=== PATIENT | male | born 1950 | race Caucasian/White ===

== ENCOUNTER 2018-03-04 14:58 | Emergency (ER) | payer MEDICARE, BC, OTHER ==
[~2018-03-04] VITALS: Ht 182.9 cm; Wt 109.1 kg
[~2018-03-04 14:58] MED LIST: ALLO300T8 PO; ASPI-611 PO; ATOR10TA70 PO; ESOM40CA54 PO; FINA5TAB11 PO; ISOS60TA4 PO; METO25TA6 PO; NITR0.4T51 SL; SITA100T15 SUBCUT; TAMS0.4C32 PO; TICA90TA2 PO; VALS160T30 PO
[2018-03-04] MEDS ORDERED: HYDR-3965 PO (15:34)
[2018-03-04] MEDS ORDERED: HYDROcodone/acetaminophen 10/325mg tab PO ONE (15:35)
[2018-03-04] MEDS ORDERED: TETanus/Pertussis (Acell)/Diphther VAC/PF (Tdap-Adult) 0.5ml syringe IM ONE (15:40)
[2018-03-04 16:01] VITALS: BP 143/75
== END 2018-03-04 16:09 | disposition home or self-care (01) ==
LOC: ER 14:59
DX: S42.291A Other displaced fracture of upper end of right humerus, initial encounter for closed fracture (principal); S61.212A Laceration without foreign body of right middle finger without damage to nail, initial encounter; S00.83XA Contusion of other part of head, initial encounter; I25.10 Atherosclerotic heart disease of native coronary artery without angina pectoris; Z79.82 Long term (current) use of aspirin; Z79.899 Other long term (current) drug therapy; Z95.5 Presence of coronary angioplasty implant and graft; W19.XXXA Unspecified fall, initial encounter; Y93.89 Activity, other specified; Y92.89 Other specified places as the place of occurrence of the external cause; Y99.9 Unspecified external cause status
CPT/HCPCS: 29105; 70450; 73030; 90471; 90715; 99284

== ENCOUNTER 2018-03-07 12:58 | Outpatient (CLI) | payer MEDICARE, BC, OTHER ==
[~2018-03-07] VITALS: Ht 182.9 cm; Wt 118.8 kg
[2018-03-07 12:55] VITALS: BP 152/80
[~2018-03-07 12:58] MED LIST changes: +HYDR-3965 PO
== END 2018-03-07 13:50 | disposition home or self-care (01) ==
LOC: ORTHO 12:58
PROVIDERS: ATTEND Nurse Practitioner Family
DX: S42.291A Other displaced fracture of upper end of right humerus, initial encounter for closed fracture (principal); M10.9 Gout, unspecified; M19.90 Unspecified osteoarthritis, unspecified site; E11.319 Type 2 diabetes mellitus with unspecified diabetic retinopathy without macular edema; I25.10 Atherosclerotic heart disease of native coronary artery without angina pectoris; E78.00 Pure hypercholesterolemia, unspecified; I10 Essential (primary) hypertension; I25.2 Old myocardial infarction; K21.9 Gastro-esophageal reflux disease without esophagitis; G89.29 Other chronic pain; Z87.891 Personal history of nicotine dependence; Z86.73 Personal history of transient ischemic attack (TIA), and cerebral infarction without residual deficits; Z79.82 Long term (current) use of aspirin; Z79.899 Other long term (current) drug therapy; X58.XXXA Exposure to other specified factors, initial encounter; Y93.89 Activity, other specified; Y92.89 Other specified places as the place of occurrence of the external cause; Y99.8 Other external cause status
CPT/HCPCS: 99215

== ENCOUNTER 2018-03-08 11:35 | Outpatient (CLI) | payer MEDICARE, BC, OTHER ==
[2018-03-08 11:53] VITALS: BP 133/69
== END 2018-03-08 13:00 | disposition home or self-care (01) ==
LOC: ORTHO 11:35
PROVIDERS: ATTEND Nurse Practitioner Family
DX: S42.291D Other displaced fracture of upper end of right humerus, subsequent encounter for fracture with routine healing (principal); I10 Essential (primary) hypertension; K21.9 Gastro-esophageal reflux disease without esophagitis; M10.9 Gout, unspecified; I25.2 Old myocardial infarction; E11.9 Type 2 diabetes mellitus without complications; Z87.891 Personal history of nicotine dependence; Z79.82 Long term (current) use of aspirin; W19.XXXD Unspecified fall, subsequent encounter
CPT/HCPCS: 99213

== ENCOUNTER 2018-09-10 18:17 | Emergency (ER) | payer MEDICARE, BC, OTHER ==
[~2018-09-10] VITALS: Ht 182.9 cm; Wt 100.0 kg
[~2018-09-10 18:17] MED LIST changes: -FINA5TAB11 PO; -HYDR-3965 PO; +IRBE150T51 PO; -TAMS0.4C32 PO; +TICA60TA PO; -TICA90TA2 PO; -VALS160T30 PO
[2018-09-10] MEDS ORDERED: glucagon, human recombinant 1mg kit IV ONE (18:50)
--- NOTE | 2018-09-10 19:03 | NUR ---
pt felt like swallowed the pill, provider notified, pt given a glass of water, pt able to tolerate/drink a glass of water without difficulty.
--- NOTE | 2018-09-10 19:35 | NUR ---
1 kit of glucagon return due to pt status changed, 2nd kit of glucagon opened but discarded.
[2018-09-10 20:13] VITALS: BP 112/76
== END 2018-09-10 20:19 | disposition home or self-care (01) ==
LOC: ER 18:18
DX: T17.298A Other foreign object in pharynx causing other injury, initial encounter (principal); E11.319 Type 2 diabetes mellitus with unspecified diabetic retinopathy without macular edema; I25.10 Atherosclerotic heart disease of native coronary artery without angina pectoris; E78.00 Pure hypercholesterolemia, unspecified; I10 Essential (primary) hypertension; I25.2 Old myocardial infarction; G47.30 Sleep apnea, unspecified; K21.9 Gastro-esophageal reflux disease without esophagitis; M19.90 Unspecified osteoarthritis, unspecified site; M10.9 Gout, unspecified; Z79.82 Long term (current) use of aspirin; Z87.11 Personal history of peptic ulcer disease; Z79.899 Other long term (current) drug therapy; Z86.73 Personal history of transient ischemic attack (TIA), and cerebral infarction without residual deficits; Z90.49 Acquired absence of other specified parts of digestive tract; X58.XXXA Exposure to other specified factors, initial encounter; Y93.89 Activity, other specified; Y92.89 Other specified places as the place of occurrence of the external cause; Y99.8 Other external cause status
CPT/HCPCS: 99283; J1610; 99281

== ENCOUNTER 2019-11-02 08:08 | Emergency (ER) | payer OTHER, MEDICARE, BC ==
[~2019-11-02] VITALS: Ht 182.9 cm; Wt 104.5 kg
[2019-11-02 08:20] VITALS: BP 155/75
[2019-11-02] MEDS ORDERED: cephalexin 500mg capsule PO ONE (08:30)
[2019-11-02] MEDS ORDERED: CEPH500C5 PO (08:57)
== END 2019-11-02 09:10 | disposition home or self-care (01) ==
LOC: ER 08:08
DX: L03.032 Cellulitis of left toe (principal); L84 Corns and callosities; E11.319 Type 2 diabetes mellitus with unspecified diabetic retinopathy without macular edema; I25.10 Atherosclerotic heart disease of native coronary artery without angina pectoris; E78.00 Pure hypercholesterolemia, unspecified; I10 Essential (primary) hypertension; I25.2 Old myocardial infarction; G47.30 Sleep apnea, unspecified; K21.9 Gastro-esophageal reflux disease without esophagitis; M19.90 Unspecified osteoarthritis, unspecified site; Z90.49 Acquired absence of other specified parts of digestive tract; Z86.73 Personal history of transient ischemic attack (TIA), and cerebral infarction without residual deficits; Z98.890 Other specified postprocedural states; Z72.89 Other problems related to lifestyle; Z79.82 Long term (current) use of aspirin; Z79.899 Other long term (current) drug therapy
CPT/HCPCS: 73630; 99283

== ENCOUNTER 2021-03-15 08:58 | Emergency (ER) | payer OTHER, MEDICARE, BC ==
[~2021-03-15] VITALS: Ht 182.9 cm; Wt 111.4 kg
[~2021-03-15 08:58] MED LIST changes: -ISOS60TA4 PO; +ISOS60TA71 PO; +LOP25T PO; -METO25TA6 PO
[2021-03-15] MEDS ORDERED: ipratropium/albuterol 3ml nebule NEB ONE (09:15)
[2021-03-15] MEDS ORDERED: predniSONE 20 mg tablet PO ONE (09:15)
[2021-03-15] MEDS ORDERED: BENZ-16 PO (09:20)
[2021-03-15] MEDS ORDERED: BUDE10.22 INH (09:20)
[2021-03-15 10:06] VITALS: BP 116/67
== END 2021-03-15 10:57 | disposition home or self-care (01) ==
LOC: ER 08:58
DX: J06.9 Acute upper respiratory infection, unspecified (principal); B97.89 Other viral agents as the cause of diseases classified elsewhere; R06.2 Wheezing; I25.10 Atherosclerotic heart disease of native coronary artery without angina pectoris; E78.00 Pure hypercholesterolemia, unspecified; I10 Essential (primary) hypertension; I25.2 Old myocardial infarction; G47.30 Sleep apnea, unspecified; K21.9 Gastro-esophageal reflux disease without esophagitis; N40.0 Benign prostatic hyperplasia without lower urinary tract symptoms; M19.90 Unspecified osteoarthritis, unspecified site; Z87.81 Personal history of (healed) traumatic fracture; M10.9 Gout, unspecified; E11.319 Type 2 diabetes mellitus with unspecified diabetic retinopathy without macular edema; Z86.73 Personal history of transient ischemic attack (TIA), and cerebral infarction without residual deficits; Z87.448 Personal history of other diseases of urinary system; Z87.11 Personal history of peptic ulcer disease; Z72.89 Other problems related to lifestyle; Z87.891 Personal history of nicotine dependence; Z90.49 Acquired absence of other specified parts of digestive tract
CPT/HCPCS: 94640; 99283; J7512; 94760

== ENCOUNTER 2023-09-01 10:37 | Emergency (ER) | payer OTHER, MEDICARE, BC ==
[~2023-09-01 10:37] MED LIST changes: +BUDE10.22 INH
[2023-09-01 10:46] VITALS: TEMP 98.6
[2023-09-01] MEDS ORDERED: iohexol 350MG/ML 100ml bottle IV ONE (10:48)
[2023-09-01 10:55] LABS: BASOPHILS % (AUTO) 0.2 % (0-1); EOSINOPHILS # (AUTO) 0.1 X10'3 (0-0.9); EOSINOPHILS % (AUTO) 0.8 % (0-6); HEMOGLOBIN 12.5 g/dl (14.0-17.9); LYMPHOCYTES # (AUTO) 1.2 X10'3 (1.1-4.8); LYMPHOCYTES % (AUTO) 17.8 % (21-51); MEAN CORPUSCULAR HEMOGLOBIN 27.9 PG (27.0-31.0); MEAN CORPUSCULAR HGB CONC 32.8 g/dL (33.0-36.5); MEAN CORPUSCULAR VOLUME 84.9 FL (78-98); MEAN PLATELET VOLUME 9.1 FL (7.4-10.4); MONOCYTES # (AUTO) 0.5 X10'3 (0-0.9); MONOCYTES % (AUTO) 7.6 % (2-12); NEUTROPHILS % (AUTO) 73.6 % (42-75); PLATELET COUNT 150 X10'3 (140-440); RED BLOOD COUNT 4.47 X10'6 (4.70-6.10); WHITE BLOOD COUNT 6.8 X10'3 (4.5-11.0)
[2023-09-01 11:08] LABS: APTT 25 SECONDS (22-32); INR 1.1 INR; PROTHROMBIN TIME 11.4 SECONDS (9.0-12.0)
[2023-09-01 11:13] LABS: ALANINE AMINOTRANSFERASE 28 U/L (12-78); ALBUMIN 3.6 G/DL (3.4-5.0); ALBUMIN/GLOBULIN RATIO 1.1 (1.1-1.5); ALKALINE PHOSPHATASE 43 IU/L (46-116); ANION GAP 15 (8-16); ASPARTATE AMINO TRANSFERASE 23 U/L (10-37); BILIRUBIN,TOTAL 1.9 MG/DL (0.1-1.0); BLOOD UREA NITROGEN 12 MG/DL (7-18); BUN/CREATININE RATIO 9.1 (10.0-20.0); CALCIUM 8.4 MG/DL (8.5-10.1); CHLORIDE 101 MMOL/L (99-107); CREATININE 1.32 MG/DL (0.60-1.10); GLUCOSE 164 MG/DL (70-104); POTASSIUM 3.8 MMOL/L (3.5-5.1); SODIUM 140 MMOL/L (135-145); TOTAL CARBON DIOXIDE 23.7 MMOL/L (24-32); TOTAL PROTEIN 6.9 G/DL (6.4-8.2); eGFR 53 ML/MIN
[2023-09-01 11:18] LABS: PRO BRAIN NATRIURETIC PEPTIDE 602 PG/ML (0-125)
[2023-09-01] MEDS ORDERED: FLO0.4C PO (12:36)
[2023-09-01] MEDS ORDERED: MONT-40 PO (12:36)
[2023-09-01] MEDS ORDERED: IRBE1TAB31 PO (12:36)
[2023-09-01] MEDS ORDERED: CHOL20002 PO (12:36)
[2023-09-01] MEDS ORDERED: METF-900 PO (12:36)
[2023-09-01 12:56] VITALS: BP 166/80; PULSE 61; RESP 16; O2SAT 97
== END 2023-09-01 13:29 | disposition home or self-care (01) ==
LOC: ER 10:38
DX: G43.709 Chronic migraine without aura, not intractable, without status migrainosus (principal); E11.319 Type 2 diabetes mellitus with unspecified diabetic retinopathy without macular edema; I25.10 Atherosclerotic heart disease of native coronary artery without angina pectoris; E78.00 Pure hypercholesterolemia, unspecified; I10 Essential (primary) hypertension; I25.2 Old myocardial infarction; G47.30 Sleep apnea, unspecified; K21.9 Gastro-esophageal reflux disease without esophagitis; M19.90 Unspecified osteoarthritis, unspecified site; Z86.018 Personal history of other benign neoplasm; Z90.49 Acquired absence of other specified parts of digestive tract; Z86.73 Personal history of transient ischemic attack (TIA), and cerebral infarction without residual deficits
CPT/HCPCS: 36415; 70450; 70496; 70498; 71045; 80053; 82948; 83880; 84484; 85025; 85610; 85730; 99285; J3490; Q9967